=== PATIENT | male | born 1935 | race Caucasian/White ===

== ENCOUNTER 2020-05-25 16:07 | Observation (INO) ==
[~2020-05-25 16:07] MED LIST: *HR* HYDROcodone/Acet 5/325 mg TABLET PO PRN; Ondansetron 4 MG/2 ML VIAL IVP PRN
[2020-05-25] MEDS ORDERED: Ringers Solution, Lactated 1,000 ML IVC SCH (16:15)
[2020-05-25] MEDS ORDERED: cefOXitin 2,000 MG in Water for inj. (sterile) 20 ML IVP ONE (16:41)
[2020-05-25] MEDS ORDERED: Lidocaine -MPF 2% 2 ML VIAL ONE (18:35)
[2020-05-25] MEDS ORDERED: *HR* Propofol 200 MG/20 ML VIAL IVP ONE (18:35)
[2020-05-25] MEDS ORDERED: Dexamethasone 4 MG/ML VIAL ONE (18:35)
[2020-05-25] MEDS ORDERED: Ondansetron 4 MG/2 ML VIAL ONE (18:35)
[2020-05-25] MEDS ORDERED: *HR* Rocuronium Bromide 50 MG/5 ML VIAL ONE (19:06)
[2020-05-25] MEDS ORDERED: *HR* FentaNYL (PF) 100 MCG/2 ML VIAL ONE ×2 (19:06→20:57)
[2020-05-25] MEDS ORDERED: Sugammadex Sodium 200 MG/2 ML VIAL IV ONE (19:58)
[2020-05-25] MEDS ORDERED: Acetaminophen IV 1,000 MG/100 ML BAG IVPB ONE (20:11)
[2020-05-25] MEDS: *HR* HYDROmorphone (PF) 1 MG/ML SYRINGE IVP PRN ×6 (21:53→22:26)
[2020-05-25] MEDS ORDERED: Ondansetron 4 MG/2 ML VIAL IVP PRN (23:03)
[2020-05-25] MEDS ORDERED: Naloxone 0.4 MG/ML INJ IVP PRN (23:03)
[2020-05-26] MEDS ORDERED: *HR* HYDROcodone/Acet 5/325 mg TABLET PO PRN (00:42)
[2020-05-26] MEDS ORDERED: *HR* FentaNYL (PF) 100 MCG/2 ML VIAL IVP PRN (00:43)
[2020-05-26] MEDS: cefOXitin 2,000 MG in Water for inj. (sterile) 20 ML IVP SCH ×2 (01:11→10:00)
[2020-05-26 05:27] LABS: Basophils % 0.2 %; Hematocrit 44.6 % (37.5-50.1); Immature Granulocytes % 0.5 % (0-4); Lymphocytes # 0.8 K/mcL (0.6-4.6); Lymphocytes % 7.6 %; Mean Corpuscular HGB Conc 31.4 g/dL (31.6-35.5); Mean Corpuscular Hemoglobin 29.5 pg (28.0-33.3); Mean Corpuscular Volume 93.9 fL (83.0-100.0); Mean Platelet Volume 10.1 fL (9.4-12.4); Monocytes # 0.5 K/mcL (0.0-1.3); Monocytes % 5.4 %; Neutrophils # 8.7 K/mcL (1.6-8.9); Platelet Count 253 K/mcL (140-400); Red Blood Count 4.75 M/mcL (4.19-5.50); Red Cell Distribution Width 14.5 % (11.5-14.5); Segmented Neutrophils % 86.3 %; White Blood Count 10.1 K/mcL (4.3-11.1)
[2020-05-26 05:37] LABS: Albumin 3.9 g/dL (3.5-5.7); Albumin/Globulin Ratio 1.4 (1.1-2.2); Bilirubin,Direct 1.1 mg/dL (0.0-0.2); Bilirubin,Indirect 0.5 mg/dL (0.0-1.0); Bilirubin,Total 1.6 mg/dL (0.3-1.0); Globulin 2.7 g/dL (2.4-3.5); Total Protein 6.6 g/dL (6.4-8.9)
[2020-05-26] MEDS ORDERED: Acetaminophen IV 1,000 MG/100 ML BAG IVPB ONE (08:47)
[2020-05-26 09:49] LABS: BUN/Creatinine Ratio 20 (6-26); Blood Urea Nitrogen 27 mg/dL (8-23); Calcium 9.1 mg/dL (8.6-10.3); Carbon Dioxide 29 mEq/L (23-29); Chloride 103 mEq/L (98-107); Glucose 127 mg/dL (70-105); Osmolality,Calculated 297 (280-300); Sodium 140 mEq/L (136-145); eGFR For African Americans > 60 (> 60); eGFR For Non-African Americans 51 (> 60)
[2020-05-26] MEDS: Fenofibrate 54 MG TABLET PO SCH (09:49)
[2020-05-26] MEDS: (Anoro Ellipta 62.5-2) IH SCH (09:51)
[2020-05-26] MEDS ORDERED: 0.9 % Sodium Chloride 1,000 ML IVC SCH (10:00)
[2020-05-26] MEDS: *HR* Heparin 5,000 UNIT/ML VIAL SQ SCH ×2 (10:13→17:58)
[2020-05-26] MEDS: hydroCHLOROthiazide 25 MG TABLET PO SCH (10:49)
[2020-05-27] MEDS: *HR* Heparin 5,000 UNIT/ML VIAL SQ SCH (06:22)
[2020-05-27] MEDS: Fenofibrate 54 MG TABLET PO SCH (10:03)
[2020-05-27] MEDS: hydroCHLOROthiazide 25 MG TABLET PO SCH (10:04)
[2020-05-27] MEDS: (Anoro Ellipta 62.5-2) IH SCH (10:05)
[2020-05-27 11:42] VITALS: BP 133/81
== END 2020-05-27 16:08 | disposition home or self-care (01) ==
LOC: 3ANU 16:07 → SAMDAY 16:07 → 3ANU 22:54
PROVIDERS: ADMIT Surgery; ATTEND Surgery